=== PATIENT | female | born 1955 | race Caucasian/White ===

== ENCOUNTER 2017-03-12 15:29 | Emergency (ER) | payer BC ==
[2017-03-12 15:53] VITALS: BP 134/95
[2017-03-12] MEDS ORDERED: cefTRIAXone 1 GM, Lidocaine 1% 2.1 ML IM ONE ×2 (16:06)
--- NOTE | 2017-03-12 16:12 | EDM.PDOC ---
ED HPI GENERAL MEDICAL PROBLEM - General Chief Complaint: ENT Problem Stated Complaint: SORE THROAT, NOT FEELING WELL Time Seen by Provider: 03/12/17 16:07 Source of Information: Reports: Patient, Family History Limitations: Reports: No Limitations - History of Present Illness INITIAL COMMENTS - FREE TEXT/NARRATIVE: pt developed pain in her throat today and realized that this felt like when she had strept. She does not have a fever. Onset: Sudden Duration: Hour(s): Location: Reports: Other ( sore throat. ) Associated Symptoms: Reports: Fever/Chills, Other (pt has had chills) - Related Data Allergies Allergy/AdvReac Type Severity Reaction Status Date / Time Sulfa (Sulfonamide Allergy Rash Verified 10/06/16 21:52 Antibiotics) Home Meds: Home Meds Gabapentin [Neurontin] 600 mg PO TID 10/09/14 [History] Hydrocodone/Acetaminophen [Hydrocodon-Acetaminophn 10-325] 10 - 325 mg PO ASDIRECTED PRN 10/09/14 [History] Nortriptyline 10 mg PO BEDTIME 10/09/14 [History] Alendronate [Fosamax] 70 mg PO Q7D@0600 10/06/16 [History] Past Medical History HEENT History: Reports: Impaired Vision Cardiovascular History: Reports: Hypertension Gastrointestinal History: Reports: Bowel Obstruction, Cholelithiasis, Pancreatitis 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: Musculoskeletal History: Reports: Back Pain, Chronic, Fracture, Osteoarthritis Endocrine/Metabolic History: Reports: Osteopenia - Past Surgical History GI Surgical History: Reports: Bariatric Procedure, Cholecystectomy, Hernia Repair/Other, Other (See Below) Social & Family History - Tobacco Use Smoking Status *Q: Never Smoker Second Hand Smoke Exposure: No - Caffeine Use Caffeine Use: Reports: Coffee - Alcohol Use Days Per Week of Alcohol Use: 7 Number of Drinks Per Day: 6 Total Drinks Per Week: 42 - Recreational Drug Use Recreational Drug Use: No - Living Situation & Occupation Living situation: Reports: Occupation: Employed ED ROS ENT - Review of Systems Review Of Systems: See Below Constitutional: Reports: Chills, Fatigue HEENT: Reports: Throat Pain Respiratory: Reports: No Symptoms Cardiovascular: Reports: No Symptoms Endocrine: Reports: No Symptoms GI/Abdominal: Reports: No Symptoms : Reports: No Symptoms Musculoskeletal: Reports: No Symptoms Skin: Reports: No Symptoms ED EXAM, ENT - Physical Exam Exam: See Below Text/Narrative:: pt has a sore throat which started this am. Exam Limited By: No Limitations General Appearance: Alert, Mild Distress Ears: Normal TMs Nose: Normal Inspection Mouth/Throat: Throat Pain, Throat Swelling Head: Atraumatic Neck: Lymphadenopathy (R), Lymphadenopathy (L) Respiratory/Chest: No Respiratory Distress Course - Vital Signs Last Recorded V/S: Last Vital Signs Temp 35.9 C 03/12/17 15:53 Pulse 98 03/12/17 15:53 Resp 16 03/12/17 15:53 BP 134/95 H 03/12/17 15:53 Pulse Ox 99 03/12/17 15:53 - Orders/Labs/Meds Meds: Medications Discontinued Medications Generic Name Dose Route Start Last Admin Trade Name Rockyq PRN Reason Stop Dose Admin Ceftriaxone Sodium 1 gm/ 0 gm 03/12/17 16:06 Lidocaine HCl 2.1 ml IM 03/12/17 16:07 ONETIME ONE - Re-Assessments/Exams Free Text/Narrative Re-Assessment/Exam: 03/12/17 16:12 pt was given rocephen 1 gm im. Departure - Departure Time of Disposition: 16:13 Disposition: Home, Self-Care 01 Condition: fair Clinical Impression: Streptococcal pharyngitis - Discharge Information Forms: ED Department Discharge Care Plan Goals: push fluids, tyenol for fever and discomfort. amoxicillin 500mg tid.
== END 2017-03-12 16:41 | disposition home or self-care (01) ==
LOC: JP.ED 15:29
DX: J02.0 Streptococcal pharyngitis (principal); I10 Essential (primary) hypertension; M19.90 Unspecified osteoarthritis, unspecified site; Z98.84 Bariatric surgery status; Z90.49 Acquired absence of other specified parts of digestive tract; Z98.890 Other specified postprocedural states; Z88.2 Allergy status to sulfonamides
CPT/HCPCS: 87430; 96372; 99284; J0696

== ENCOUNTER 2020-09-09 15:24 | Inpatient (IN) | payer OTHER, MEDICARE ==
[2020-09-09] MEDS ORDERED: Acetaminophen 500 MG Tab PO ONE (16:06)
[2020-09-09] MEDS ORDERED: Sodium Chloride 0.9% 10 ML Syringe FLUSH PRN (16:37)
--- NOTE | 2020-09-09 16:50 | EDM.PDOC ---
ED HPI GENERAL MEDICAL PROBLEM - General Chief Complaint: General Stated Complaint: LETHARGIC,ACHES Time Seen by Provider: 09/09/20 16:35 Source of Information: Reports: Patient, Old Records, RN History Limitations: Reports: No Limitations - History of Present Illness INITIAL COMMENTS - FREE TEXT/NARRATIVE: 64 yo female here with fever, dizziness with standing, mild dysuria, and a MCPHERSON. Sx's began yesterday. Has body aches. No known exposures. Called the clinic and was directed to the ER. No fever treatment as she was not aware of a fever. No stiff neck or photophobia. Onset: Gradual Onset Date: 09/08/20 Duration: Day(s): (1+), Getting Worse Location: Reports: Generalized Quality: Reports: Ache (diffuse) Severity: Mild Improves with: Reports: None Worsens with: Reports: Other (? time) Context: Reports: Other (See HPI) Associated Symptoms: Reports: Fever/Chills (was not fully aware of fever), Headaches. 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: Other (see below) (none) bodyaches and headache Pain Score (Numeric/FACES): 7 - Related Data Allergies Allergy/AdvReac Type Severity Reaction Status Date / Time Sulfa (Sulfonamide Allergy Rash Verified 09/09/20 15:54 Antibiotics) Home Meds: Home Meds Gabapentin [Neurontin] 600 mg PO TID 10/09/14 [History] Nortriptyline 10 mg PO BEDTIME 10/09/14 [History] Alendronate [Fosamax] 70 mg PO Q7D@0600 10/06/16 [History] Buprenorphine/Naloxone [Buprenorphine-Naloxone 8 MG-2 MG] 1 tab SL BID 09/09/20 [History] DULoxetine HCl [Duloxetine HCl] 60 mg PO BID 09/09/20 [History] busPIRone [Buspar] 10 mg PO BID 09/09/20 [History] Past Medical History HEENT History: Reports: Impaired Vision Cardiovascular History: Reports: Hypertension Respiratory History: Reports: None Gastrointestinal History: Reports: Bowel Obstruction, Cholelithiasis, Pancreatitis Genitourinary History: Reports: None 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: Musculoskeletal History: Reports: Back Pain, Chronic, Fracture, Osteoarthritis Neurological History: Reports: None Psychiatric History: Reports: Addiction Endocrine/Metabolic History: Reports: Osteopenia Hematologic History: Reports: None Immunologic History: Reports: None Oncologic (Cancer) History: Reports: None Dermatologic History: Reports: None - Infectious Disease History Infectious Disease History: Reports: Chicken Pox - Past Surgical History GI Surgical History: Reports: Bariatric Procedure, Cholecystectomy, Hernia Repair/Other, Other (See Below) Other GI Surgeries/Procedures: Bariatric procedure in 2001. Social & Family History - Tobacco Use Tobacco Use Status *Q: Never Tobacco User - Caffeine Use Caffeine Use: Reports: Coffee - Recreational Drug Use Other Recreational Drug Type: hydrocodone Recreational Drug Use Frequency: Not Used In Over 6 Months - Living Situation & Occupation Living situation: Reports: Occupation: Employed ED ROS GENERAL - Review of Systems Review Of Systems: See Below Constitutional: Reports: Fever, Malaise HEENT: Reports: No Symptoms Respiratory: Reports: No Symptoms Cardiovascular: Reports: Lightheadedness Endocrine: Reports: No Symptoms GI/Abdominal: Reports: No Symptoms : Reports: Dysuria (mild) Musculoskeletal: Reports: No Symptoms Skin: Reports: No Symptoms Neurological: Reports: No Symptoms ED EXAM, GENERAL - Physical Exam Exam: See Below Exam Limited By: No Limitations General Appearance: Alert, WD/WN, No Apparent Distress Eye Exam: Bilateral Eye: Normal Inspection Ears: Normal External Exam, Hearing Grossly Normal, Normal TMs Ear Exam: Bilateral Ear: Auricle Normal, Canal Normal, TM normal Nose: Normal Inspection, No Blood Throat/Mouth: Normal Inspection, Normal Lips, Normal Oropharynx, Normal Voice, No Airway Compromise Head: Atraumatic, Normocephalic Neck: Normal Inspection Respiratory/Chest: No Respiratory Distress, Lungs Clear, Normal Breath Sounds, No Accessory Muscle Use Cardiovascular: Regular Rate, Rhythm, Tachycardia, Other (Trace RLE edema below the knees). No: No Edema GI/Abdominal: Normal Bowel Sounds, Soft, Non-Tender, No Distention Back Exam: Normal Inspection, CVA Tenderness (R). No: CVA Tenderness (L) Extremities: Normal Inspection, Normal Range of Motion, Non-Tender, No Pedal Edema Neurological: Alert, Oriented, CN II-XII Intact, Normal Cognition, No Motor/Sensory Deficits Psychiatric: Normal Affect, Normal Mood Skin Exam: Warm, Dry, Intact, Normal Color, No Rash Course - Vital Signs Last Recorded V/S: Last Vital Signs Temp 37.6 C 12/02/20 17:29 Pulse 102 H 09/09/20 17:29 Resp 16 09/09/20 17:29 BP 111/69 09/09/20 17:29 Pulse Ox 99 09/09/20 17:29 - Orders/Labs/Meds Orders: Active Orders 24 hr Category Date Time Status CULTURE BLOOD [BC] Stat Lab 09/09/20 16:47 Received CULTURE BLOOD [BC] Stat Lab 09/09/20 16:51 Received CULTURE URINE [RM] Stat Lab 09/09/20 16:59 Received NS + KCl 20mEq/L [Normal Saline with 20 mEq KCl] 1,000 Med 09/09/20 17:00 Active ml IV ASDIRECTED Sodium Chloride 0.9% [Saline Flush] Med 09/09/20 16:37 Active 10 ml FLUSH ASDIRECTED PRN Saline Lock Insert [OM.PC] Routine Oth 09/09/20 16:37 Ordered Medication Orders Potassium Chloride/Sodium Chloride (Normal Saline With 20 Meq Kcl) 1,000 mls @ 1,000 mls/hr IV ASDIRECTED PALOMO Last Admin: 09/09/20 16:58 Dose: 1,000 mls/hr Documented by: PREILOR Sodium Chloride (Saline Flush) 10 ml FLUSH ASDIRECTED PRN PRN Reason: Keep Vein Open Last Admin: 09/09/20 16:51 Dose: 10 ml Documented by: PURNIMA Labs: Laboratory Tests 09/09/20 09/09/20 09/09/20 Range/Units 16:15 16:15 16:15 WBC 28.9 H (4.5-11.0) K/uL RBC 3.82 (3.30-5.50) M/uL Hgb 11.8 L D (12.0-15.0) g/dL Hct 37.6 (36.0-48.0) % MCV 98 (80-98) fL MCH 31 (27-31) pg MCHC 31 L (32-36) % Plt Count 285 (150-400) K/uL Sodium 132 L (140-148) mmol/L Potassium 3.9 (3.6-5.2) mmol/L Chloride 94 L (100-108) mmol/L Carbon Dioxide 27 (21-32) mmol/L Anion Gap 14.9 H (5.0-14.0) mmol/L BUN 17 D (7-18) mg/dL Creatinine 1.4 H D (0.6-1.0) mg/dL Est Cr Clr Drug Dosing 31.68 mL/min Estimated GFR (MDRD) 38 L (>60) Glucose 192 H (74-106) mg/dL Lactic Acid 2.2 H (0.4-2.0) mmol/L Calcium 9.0 (8.5-10.1) mg/dL Urine Color (YELLOW) Urine Appearance (CLEAR) Urine pH (5.0-8.0) Ur Specific [place] (1.008-1.030) Urine Protein (NEGATIVE) mg/dL Urine Glucose (UA) (NEGATIVE) mg/dL Urine Ketones (NEGATIVE) mg/dL Urine Occult Blood (NEGATIVE) Urine Nitrite (NEGATIVE) Urine Bilirubin (NEGATIVE) Urine Urobilinogen (0.2-1.0) EU/dL Ur Leukocyte Esterase (NEGATIVE) Urine RBC (0-5) Urine WBC (0-5) Ur Epithelial Cells Amorphous Sediment Urine Bacteria Urine Mucus SARS CoV-2 RNA Rapid NICKY 09/09/20 09/09/20 Range/Units 16:20 16:26 WBC (4.5-11.0) K/uL RBC (3.30-5.50) M/uL Hgb (12.0-15.0) g/dL Hct (36.0-48.0) % MCV (80-98) fL MCH (27-31) pg MCHC (32-36) % Plt Count (150-400) K/uL Sodium (140-148) mmol/L Potassium (3.6-5.2) mmol/L Chloride (100-108) mmol/L Carbon Dioxide (21-32) mmol/L Anion Gap (5.0-14.0) mmol/L BUN (7-18) mg/dL Creatinine (0.6-1.0) mg/dL Est Cr Clr Drug Dosing mL/min Estimated GFR (MDRD) (>60) Glucose (74-106) mg/dL Lactic Acid (0.4-2.0) mmol/L Calcium (8.5-10.1) mg/dL Urine Color Yellow (YELLOW) Urine Appearance Slightly cloudy A (CLEAR) Urine pH 5.5 (5.0-8.0) Ur Specific [place] 1.020 (1.008-1.030) Urine Protein 100 H (NEGATIVE) mg/dL Urine Glucose (UA) Negative (NEGATIVE) mg/dL Urine Ketones Negative (NEGATIVE) mg/dL Urine Occult Blood Small H (NEGATIVE) Urine Nitrite Positive H (NEGATIVE) Urine Bilirubin Small H (NEGATIVE) Urine Urobilinogen 0.2 (0.2-1.0) EU/dL Ur Leukocyte Esterase Small H (NEGATIVE) Urine RBC 0-5 (0-5) Urine WBC Packed H (0-5) Ur Epithelial Cells Rare Amorphous Sediment Not seen Urine Bacteria Many Urine Mucus Not seen SARS CoV-2 RNA Rapid NICKY Negative Meds: Medications Generic Name Dose Route Start Last Admin Trade Name Freq PRN Reason Stop Dose Admin Potassium Chloride/Sodium Chloride 1,000 mls @ 1,000 mls/hr 09/09/20 17:00 09/09/20 16:58 Normal Saline With 20 Meq Kcl IV 1,000 mls/hr ASDIRECTED PALOMO Administration Sodium Chloride 10 ml 09/09/20 16:37 09/09/20 16:51 Saline Flush FLUSH 10 ml ASDIRECTED PRN Administration Keep Vein Open Discontinued Medications Generic Name Dose Route Start Last Admin Trade Name Freq PRN Reason Stop Dose Admin Acetaminophen 1,000 mg 09/09/20 16:06 09/09/20 16:14 Tylenol Extra Strength PO 09/09/20 16:07 1,000 mg ONETIME ONE Administration Ceftriaxone Sodium 1 gm/ 50 mls @ 100 mls/hr 09/09/20 16:51 09/09/20 16:58 Sodium Chloride IV 09/09/20 17:20 100 mls/hr ONETIME ONE Administration Departure - Departure Time of Disposition: 18:05 Disposition: Admitted As Inpatient 65 Condition: Fair Clinical Impression: Pyelonephritis - Discharge Information *PRESCRIPTION DRUG MONITORING PROGRAM REVIEWED*: Not Applicable *COPY OF PRESCRIPTION DRUG MONITORING REPORT IN PATIENT MARIO: Not Applicable Referrals: Chante Michael DO [Primary Care Provider] - Forms: ED Department Discharge Sepsis Event Note (ED) - Evaluation Sepsis Screening Result: Possible Sepsis Risk - Focused Exam Vital Signs: Vital Signs Temp Pulse Resp BP Pulse Ox 09/09/20 17:29 37.6 C 102 H 16 111/69 99 09/09/20 16:24 113 H 111/69 94 L 09/09/20 15:53 40.1 C H 116 H 16 119/79 98 09/09/20 15:50 40.1 C H 116 H 16 119/79 98 - My Orders Last 24 Hours: My Active Orders 09/09/20 16:37 Sodium Chloride 0.9% [Saline Flush] 10 ml FLUSH ASDIRECTED PRN Saline Lock Insert [OM.PC] Routine 09/09/20 16:47 CULTURE BLOOD [BC] Stat 09/09/20 16:51 CULTURE BLOOD [BC] Stat 09/09/20 16:59 CULTURE URINE [RM] Stat 09/09/20 17:00 NS + KCl 20mEq/L [Normal Saline with 20 mEq KCl] 1,000 ml IV ASDIRECTED - Assessment/Plan Last 24 Hours: My Active Orders 09/09/20 16:37 Sodium Chloride 0.9% [Saline Flush] 10 ml FLUSH ASDIRECTED PRN Saline Lock Insert [OM.PC] Routine 09/09/20 16:47 CULTURE BLOOD [BC] Stat 09/09/20 16:51 CULTURE BLOOD [BC] Stat 09/09/20 16:59 CULTURE URINE [RM] Stat 09/09/20 17:00 NS + KCl 20mEq/L [Normal Saline with 20 mEq KCl] 1,000 ml IV ASDIRECTED
[2020-09-09] MEDS ORDERED: cefTRIAXone 1 GM in Sodium Chloride 0.9% 50 ML IV ONE (16:51)
[2020-09-09] MEDS ORDERED: NS + KCl 20mEq/L 1,000 ML IV SCH (17:00)
[2020-09-09] MEDS ORDERED: Sodium Chloride 0.9% 1,000 ML IV SCH (18:45)
--- NOTE | 2020-09-09 19:33 | PCM.HP.2 ---
H&P History of Present Illness - General Date of Service: 09/09/20 Admit Problem/Dx: Admission Diagnosis/Problem Admission Diagnosis/Problem Pyelonephritis Source of Information: Patient History Limitations: Reports: No Limitations - History of Present Illness Initial Comments - Free Text/Narative: chief complaint: kidney infection This is a 64 year old female brought to the ER by for evaluation of symptoms. She reports has been sick for two days with weakness, headache, bodyaches, decreased appetite, thirsty, and dry mouth. She reports a history of frequent UTI Onset of Symptoms: Reports: Gradual Symptom Onset Date: 09/08/20 Duration of Symptoms: Reports: Day(s): Location: Reports: Generalized Quality: Reports: Same as Previous Episode Severity: Severe Improves with: Reports: None Worsens with: Reports: None Associated Symptoms: Reports: Fever/Chills, Loss of Appetite, Weakness bodyaches and headache Pain Score (Numeric/FACES): 3 - Related Data Allergies/Adverse Reactions: Allergies Allergy/AdvReac Type Severity Reaction Status Date / Time Sulfa (Sulfonamide Allergy Rash Verified 09/09/20 15:54 Antibiotics) Home Medications: Home Meds Gabapentin [Neurontin] 600 mg PO TID 10/09/14 [History] Nortriptyline 10 mg PO BEDTIME 10/09/14 [History] Alendronate [Fosamax] 70 mg PO Q7D@0600 10/06/16 [History] Buprenorphine/Naloxone [Buprenorphine-Naloxone 8 MG-2 MG] 1 tab SL BID 09/09/20 [History] DULoxetine HCl [Duloxetine HCl] 60 mg PO BID 09/09/20 [History] busPIRone [Buspar] 10 mg PO BID 09/09/20 [History] Past Medical History HEENT History: Reports: Impaired Vision Cardiovascular History: Reports: Hypertension Respiratory History: Reports: None Gastrointestinal History: Reports: Bowel Obstruction, Cholelithiasis, Pancreatitis Genitourinary History: Reports: None BOX ORDER PERSON History: Reports: Musculoskeletal History: Reports: Back Pain, Chronic, Fracture, Osteoarthritis Neurological History: Reports: None Psychiatric History: Reports: Addiction Endocrine/Metabolic History: Reports: Osteopenia Hematologic History: Reports: None Immunologic History: Reports: None Oncologic (Cancer) History: Reports: None Dermatologic History: Reports: None - Infectious Disease History Infectious Disease History: Reports: Chicken Pox - Past Surgical History GI Surgical History: Reports: Bariatric Procedure, Cholecystectomy, Hernia Repair/Other, Other (See Below) Other GI Surgeries/Procedures: Bariatric procedure in 2001. Social & Family History - Tobacco Use Tobacco Use Status *Q: Never Tobacco User - Caffeine Use Caffeine Use: Reports: Coffee - Recreational Drug Use Other Recreational Drug Type: hydrocodone Recreational Drug Use Frequency: Not Used In Over 6 Months - Living Situation & Occupation Living situation: Reports: Occupation: Employed H&P Review of Systems - Review of Systems: Review Of Systems: See Below General: Reports: Fever, Chills, Malaise, Weakness, Decreased Appetite HEENT: Reports: Glasses Pulmonary: Reports: No Symptoms Cardiovascular: Reports: No Symptoms Gastrointestinal: Reports: No Symptoms Genitourinary: Reports: Frequency, Flank Pain (right ) Musculoskeletal: Reports: Back Pain Skin: Reports: No Symptoms Psychiatric: Reports: No Symptoms Neurological: Reports: Headache Hematologic/Lymphatic: Reports: No Symptoms Immunologic: Reports: No Symptoms Exam - Exam Exam: See Below - Vital Signs Vital Signs: Last Vital Signs Temp 37.6 C 09/09/20 17:29 Pulse 94 09/09/20 18:38 Resp 16 09/09/20 17:29 BP 90/59 L 09/09/20 18:38 Pulse Ox 92 L 09/09/20 18:38 Weight: 84.822 kg - Exam Quality Assessment: DVT Prophylaxis General: Alert, Oriented, Cooperative HEENT: PERRLA, Hearing Intact, Mucosa Moist & [place], Nares Patent, Normal Nasal Septum, Posterior Pharynx Clear, Conjunctiva Clear, EOMI, EACs Clear, TMs Clear Neck: Supple, Trachea Midline, 2 Lungs: Clear to Auscultation, Normal Respiratory Effort Cardiovascular: Regular Rate, Regular Rhythm GI/Abdominal Exam: Normal Bowel Sounds, Soft, Non-Tender, No Organomegaly, No Distention, No Abnormal Bruit, No Mass, Pelvis Stable (Female) Exam: Deferred Rectal (Female) Exam: Deferred Back Exam: Full Range of Motion, CVA Tenderness (R) Extremities: Normal Inspection, Normal Range of Motion, Non-Tender, No Pedal Edema, Normal Capillary Refill Peripheral Pulses: 2+: Radial (L), Radial (R) Skin: Warm, Dry, Intact Neurological: Strength Equal Bilateral, Normal Speech, Normal Tone Neuro Extensive - Mental Status: Alert, Oriented x3, Normal Mood/Affect, Normal Cognition Neuro Extensive - Motor, Sensory, Reflexes: CN II-XII Intact, Normal Gait, Normal Reflexes Psychiatric: Alert, Normal Affect, Normal Mood - Patient Data Lab Results Last 24 hrs: Laboratory Results - last 24 hr 09/09/20 09/09/20 09/09/20 Range/Units 16:15 16:15 16:15 WBC 28.9 H (4.5-11.0) K/uL RBC 3.82 (3.30-5.50) M/uL Hgb 11.8 L D (12.0-15.0) g/dL Hct 37.6 (36.0-48.0) % MCV 98 (80-98) fL MCH 31 (27-31) pg MCHC 31 L (32-36) % Plt Count 285 (150-400) K/uL Sodium 132 L (140-148) mmol/L Potassium 3.9 (3.6-5.2) mmol/L Chloride 94 L (100-108) mmol/L Carbon Dioxide 27 (21-32) mmol/L Anion Gap 14.9 H (5.0-14.0) mmol/L BUN 17 D (7-18) mg/dL Creatinine 1.4 H D (0.6-1.0) mg/dL Est Cr Clr Drug Dosing 31.68 mL/min Estimated GFR (MDRD) 38 L (>60) Glucose 192 H (74-106) mg/dL Lactic Acid 2.2 H (0.4-2.0) mmol/L Calcium 9.0 (8.5-10.1) mg/dL Urine Color (YELLOW) Urine Appearance (CLEAR) Urine pH (5.0-8.0) Ur Specific [place] (1.008-1.030) Urine Protein (NEGATIVE) mg/dL Urine Glucose (UA) (NEGATIVE) mg/dL Urine Ketones (NEGATIVE) mg/dL Urine Occult Blood (NEGATIVE) Urine Nitrite (NEGATIVE) Urine Bilirubin (NEGATIVE) Urine Urobilinogen (0.2-1.0) EU/dL Ur Leukocyte Esterase (NEGATIVE) Urine RBC (0-5) Urine WBC (0-5) Ur Epithelial Cells Amorphous Sediment Urine Bacteria Urine Mucus SARS CoV-2 RNA Rapid NICKY 09/09/20 09/09/20 Range/Units 16:20 16:26 WBC (4.5-11.0) K/uL RBC (3.30-5.50) M/uL Hgb (12.0-15.0) g/dL Hct (36.0-48.0) % MCV (80-98) fL MCH (27-31) pg MCHC (32-36) % Plt Count (150-400) K/uL Sodium (140-148) mmol/L Potassium (3.6-5.2) mmol/L Chloride (100-108) mmol/L Carbon Dioxide (21-32) mmol/L Anion Gap (5.0-14.0) mmol/L BUN (7-18) mg/dL Creatinine (0.6-1.0) mg/dL Est Cr Clr Drug Dosing mL/min Estimated GFR (MDRD) (>60) Glucose (74-106) mg/dL Lactic Acid (0.4-2.0) mmol/L Calcium (8.5-10.1) mg/dL Urine Color Yellow (YELLOW) Urine Appearance Slightly cloudy A (CLEAR) Urine pH 5.5 (5.0-8.0) Ur Specific [place] 1.020 (1.008-1.030) Urine Protein 100 H (NEGATIVE) mg/dL Urine Glucose (UA) Negative (NEGATIVE) mg/dL Urine Ketones Negative (NEGATIVE) mg/dL Urine Occult Blood Small H (NEGATIVE) Urine Nitrite Positive H (NEGATIVE) Urine Bilirubin Small H (NEGATIVE) Urine Urobilinogen 0.2 (0.2-1.0) EU/dL Ur Leukocyte Esterase Small H (NEGATIVE) Urine RBC 0-5 (0-5) Urine WBC Packed H (0-5) Ur Epithelial Cells Rare Amorphous Sediment Not seen Urine Bacteria Many Urine Mucus Not seen SARS CoV-2 RNA Rapid NICKY Negative Result Diagrams: 09/09/20 16:15 09/09/20 16:15 Sepsis Event Note - Evaluation Sepsis Screening Result: Possible Sepsis Risk - Focused Exam Vital Signs: Vital Signs Temp Pulse Resp BP Pulse Ox 09/09/20 18:38 94 90/59 L 92 L 09/09/20 18:11 96 102/65 92 L 09/09/20 17:29 37.6 C 102 H 16 111/69 99 09/09/20 16:24 113 H 111/69 94 L 09/09/20 15:53 40.1 C H 116 H 16 119/79 98 09/09/20 15:50 40.1 C H 116 H 16 119/79 98 - Problem List (1) Pyelonephritis SNOMED Code(s): 99511335 ICD Code: N12 - TUBULO-INTERSTITIAL NEPHRITIS, NOT SPCF ACUTE OR CHRONIC Status: Acute Priority: High Current Visit: Yes (2) Opiate addiction SNOMED Code(s): 36909887 ICD Code: F11.20 - OPIOID DEPENDENCE, UNCOMPLICATED Status: Acute Priority: Low Current Visit: Yes Qualifiers: Substance use status: in remission Qualified Code(s): F11.21 - Opioid dependence, in remission Problem List Initiated/Reviewed/Updated: Yes Orders Last 24hrs: Active Orders 24 hr Category Date Time Status Patient Status Manage Transfer [TRANSFER] Routine ADT 09/09/20 18:43 Active CULTURE BLOOD [BC] Stat Lab 09/09/20 16:47 Received CULTURE BLOOD [BC] Stat Lab 09/09/20 16:51 Received CULTURE URINE [RM] Stat Lab 09/09/20 16:59 Received NS + KCl 20mEq/L [Normal Saline with 20 mEq KCl] 1,000 Med 09/09/20 17:00 Active ml IV ASDIRECTED Sodium Chloride 0.9% [Normal Saline] 1,000 ml Med 09/09/20 18:45 Active IV ASDIRECTED Sodium Chloride 0.9% [Saline Flush] Med 09/09/20 16:37 Active 10 ml FLUSH ASDIRECTED PRN Saline Lock Insert [OM.PC] Routine Oth 09/09/20 16:37 Ordered Resuscitation Status Routine Resus Stat 09/09/20 18:47 Ordered Medication Orders Potassium Chloride/Sodium Chloride (Normal Saline With 20 Meq Kcl) 1,000 mls @ 1,000 mls/hr IV ASDIRECTED [facility]OMO Last Admin: 09/09/20 16:58 Dose: 1,000 mls/hr Documented by: PREILOR Sodium Chloride (Normal Saline) 1,000 mls @ 999 mls/hr IV ASDIRECTED [place] Last Admin: 09/09/20 18:46 Dose: 999 mls/hr Documented by: PREILOR Sodium Chloride (Saline Flush) 10 ml FLUSH ASDIRECTED PRN PRN Reason: Keep Vein Open Last Admin: 09/09/20 16:51 Dose: 10 ml Documented by: PURNIMA Assessment/Plan Comment:: ASSESSMENT / PLAN: PYELONEPHRITIS This is a 64 year old female reports two day history of not feeling well.She has had weakness, headaches, body aches, decreased appetite, thirsty and dry mouth. She has history of frequent urinary tract infections "over the years", pain more intense on the right side. Vital signs on arrival TPR 104-116-16 B/P 119/79, given Tylenol for fever. Lab values = CBC remarkable WBC 28.9, lactic acid 2.2, urinalysis positive for nitrates and packed WBCs cultures pending, blood cultures also pending. Plan Called discussed case with hospitalist it application development manager agreed to come and evaluate the patient in the emergency department for admission Pyelonephritis -Admit to [facility] Med-Surg overflow for further monitoring -IV Fluids for rehydration LR #2 bag at 999ml/hr then at 125 mL per hour -IV Antibiotic; Rocephin 1000mg IV every 24 hours -Tylenol for pain control -Advise to notify nurses of any fever or worsen pain -blood cultures x2 pending -urine culture pending -Lactic acid at 2100 -And a.m. labs: CBC, BMP Opiates Addiction history of, patient has her medications Suboxone with her and this will be stored at the Nursing Station. -Suboxone 10 mg sublingual bid Maintenance issues -Orders home meds: ordered -Nutrition: Regular Diet -Vasquez catheter not indicated at this time -DVT: Lovenox 40 mg subcut daily -PPI; IV Protonix 40mg daily CODE STATUS: FULL Admission status: Admit to ICU Med Surg overflow Admission justification. This patient will be admitted for inpatient services and is medically appropriate meeting medical necessity for inpatient admission as outlined in my documentation. I reasonably expect the patient will require inpatient services that span. Time over 2 midnights. I reasonably expect this patient to be discharged or transf erred within 96 hours after admission to the critical access hospital. Disposition: home with Primary care provider: Dr. Michael, [place], [place]. Hospitalist: Dr. Grubbs
[2020-09-09] MEDS ORDERED: Albuterol/Ipratropium 3.0-0.5 MG/3 ML Neb Soln NEB PRN (20:01)
[2020-09-09] MEDS ORDERED: Docusate Sodium 100 MG Cap PO PRN (20:01)
[2020-09-09] MEDS ORDERED: Albuterol 0.083% 2.5 MG/3 ML Neb Soln NEB PRN (20:01)
[2020-09-09] MEDS ORDERED: Ondansetron 4 MG Tab.DIS PO PRN (20:01)
[2020-09-09] MEDS ORDERED: Bisacodyl 5 MG Tab PO PRN (20:01)
[2020-09-09] MEDS: Sodium Chloride 0.9% 1,000 ML IV SCH (20:30)
[2020-09-09] MEDS: Nortriptyline 10 MG Cap PO SCH (21:58)
[2020-09-09] MEDS: Gabapentin 300 MG Cap PO SCH (21:58)
[2020-09-09] MEDS: DULoxetine 30 MG Cap PO SCH (21:59)
[2020-09-09] MEDS: Buprenorphine/Naloxone 8-2 MG Tab.SL SL SCH (22:00)
[2020-09-09] MEDS: busPIRone 10 MG Tab PO SCH (22:00)
[2020-09-09] MEDS: Acetaminophen 325 MG Tab PO PRN (23:31)
[2020-09-10] MEDS: Acetaminophen 325 MG Tab PO PRN ×2 (03:59→19:17)
[2020-09-10] MEDS: Sodium Chloride 0.9% 1,000 ML IV SCH (04:37)
[2020-09-10] MEDS ORDERED: Pantoprazole 40 MG Vial IV SCH (09:00)
--- NOTE | 2020-09-10 09:40 | PCM.PN ---
- General Info Date of Service: 09/10/20 Subjective Update: Patient did have a fever overnight following admission but there were no acute issues. Blood pressure has stabilized. Lactic acid level has normalized. She still has a mild headache and feels weak and tired but otherwise feels better. Mild right flank pain. No dysuria today. Appetite is improving. Urine culture and one blood culture are both growing gram-negative rods. White count is improving. Functional Status: Reports: Pain Controlled, Tolerating Diet - Review of Systems General: Reports: Fever Genitourinary: Denies: Dysuria, Flank Pain - Patient Data Vitals - Most Recent: Last Vital Signs Temp 37.2 C 09/10/20 04:00 Pulse 104 H 09/10/20 04:00 Resp 18 09/10/20 04:00 BP 132/71 09/10/20 04:00 Pulse Ox 95 09/10/20 04:00 Weight - Most Recent: 88.904 kg I&O - Last 24 Hours: Intake & Output 09/09/20 09/10/20 09/10/20 22:59 06:59 14:59 Intake Total 1706 Output Total 300 300 Balance -300 1406 Lab Results Last 24 Hours: Laboratory Results - last 24 hr 09/09/20 09/09/20 09/09/20 Range/Units 16:15 16:15 16:15 WBC 28.9 H (4.5-11.0) K/uL RBC 3.82 (3.30-5.50) M/uL Hgb 11.8 L D (12.0-15.0) g/dL Hct 37.6 (36.0-48.0) % MCV 98 (80-98) fL MCH 31 (27-31) pg MCHC 31 L (32-36) % Plt Count 285 (150-400) K/uL Neut % (Auto) (36-66) % Lymph % (Auto) (24-44) % [place] % (Auto) (2-6) % Eos % (Auto) (2-4) % Baso % (Auto) (0-1) % Sodium 132 L (140-148) mmol/L Potassium 3.9 (3.6-5.2) mmol/L Chloride 94 L (100-108) mmol/L Carbon Dioxide 27 (21-32) mmol/L Anion Gap 14.9 H (5.0-14.0) mmol/L BUN 17 D (7-18) mg/dL Creatinine 1.4 H D (0.6-1.0) mg/dL Est Cr Clr Drug Dosing 31.68 mL/min Estimated GFR (MDRD) 38 L (>60) Glucose 192 H (74-106) mg/dL Lactic Acid 2.2 H (0.4-2.0) mmol/L Calcium 9.0 (8.5-10.1) mg/dL C-Reactive Protein (0.0-0.3) mg/dL Amylase (25-115) U/L Lipase (73-393) U/L Urine Color (YELLOW) Urine Appearance (CLEAR) Urine pH (5.0-8.0) Ur Specific [place] (1.008-1.030) Urine Protein (NEGATIVE) mg/dL Urine Glucose (UA) (NEGATIVE) mg/dL Urine Ketones (NEGATIVE) mg/dL Urine Occult Blood (NEGATIVE) Urine Nitrite (NEGATIVE) Urine Bilirubin (NEGATIVE) Urine Urobilinogen (0.2-1.0) EU/dL Ur Leukocyte Esterase (NEGATIVE) Urine RBC (0-5) Urine WBC (0-5) Ur Epithelial Cells Amorphous Sediment Urine Bacteria Urine Mucus SARS CoV-2 RNA Rapid NICKY 09/09/20 09/09/20 09/09/20 Range/Units 16:15 16:20 16:26 WBC (4.5-11.0) K/uL RBC (3.30-5.50) M/uL Hgb (12.0-15.0) g/dL Hct (36.0-48.0) % MCV (80-98) fL MCH (27-31) pg MCHC (32-36) % Plt Count (150-400) K/uL Neut % (Auto) (36-66) % Lymph % (Auto) (24-44) % [place] % (Auto) (2-6) % Eos % (Auto) (2-4) % Baso % (Auto) (0-1) % Sodium (140-148) mmol/L Potassium (3.6-5.2) mmol/L Chloride (100-108) mmol/L Carbon Dioxide (21-32) mmol/L Anion Gap (5.0-14.0) mmol/L BUN (7-18) mg/dL Creatinine (0.6-1.0) mg/dL Est Cr Clr Drug Dosing mL/min Estimated GFR (MDRD) (>60) Glucose (74-106) mg/dL Lactic Acid (0.4-2.0) mmol/L Calcium (8.5-10.1) mg/dL C-Reactive Protein > 25.00 H (0.0-0.3) mg/dL Amylase 35 (25-115) U/L Lipase 38 L (73-393) U/L Urine Color Yellow (YELLOW) Urine Appearance Slightly cloudy A (CLEAR) Urine pH 5.5 (5.0-8.0) Ur Specific [place] 1.020 (1.008-1.030) Urine Protein 100 H (NEGATIVE) mg/dL Urine Glucose (UA) Negative (NEGATIVE) mg/dL Urine Ketones Negative (NEGATIVE) mg/dL Urine Occult Blood Small H (NEGATIVE) Urine Nitrite Positive H (NEGATIVE) Urine Bilirubin Small H (NEGATIVE) Urine Urobilinogen 0.2 (0.2-1.0) EU/dL Ur Leukocyte Esterase Small H (NEGATIVE) Urine RBC 0-5 (0-5) Urine WBC Packed H (0-5) Ur Epithelial Cells Rare Amorphous Sediment Not seen Urine Bacteria Many Urine Mucus Not seen SARS CoV-2 RNA Rapid NICKY Negative 09/09/20 09/10/20 09/10/20 Range/Units 21:13 04:11 05:11 WBC 21.2 H (4.5-11.0) K/uL RBC 3.16 L (3.30-5.50) M/uL Hgb 9.9 L (12.0-15.0) g/dL Hct 31.4 L (36.0-48.0) % MCV 99 H (80-98) fL MCH 31 (27-31) pg MCHC 32 (32-36) % Plt Count 204 (150-400) K/uL Neut % (Auto) 89 H (36-66) % Lymph % (Auto) 4 L (24-44) % [place] % (Auto) 6 (2-6) % Eos % (Auto) 0 L (2-4) % Baso % (Auto) 0 (0-1) % Sodium (140-148) mmol/L Potassium (3.6-5.2) mmol/L Chloride (100-108) mmol/L Carbon Dioxide (21-32) mmol/L Anion Gap (5.0-14.0) mmol/L BUN (7-18) mg/dL Creatinine (0.6-1.0) mg/dL Est Cr Clr Drug Dosing mL/min Estimated GFR (MDRD) (>60) Glucose (74-106) mg/dL Lactic Acid 1.7 (0.4-2.0) mmol/L Calcium (8.5-10.1) mg/dL C-Reactive Protein (0.0-0.3) mg/dL Amylase (25-115) U/L Lipase (73-393) U/L Urine Color Yellow (YELLOW) Urine Appearance Clear (CLEAR) Urine pH 6.0 (5.0-8.0) Ur Specific [place] 1.015 (1.008-1.030) Urine Protein 30 H (NEGATIVE) mg/dL Urine Glucose (UA) Negative (NEGATIVE) mg/dL Urine Ketones Negative (NEGATIVE) mg/dL Urine Occult Blood Trace-intact H (NEGATIVE) Urine Nitrite Negative (NEGATIVE) Urine Bilirubin Negative (NEGATIVE) Urine Urobilinogen 1.0 (0.2-1.0) EU/dL Ur Leukocyte Esterase Small H (NEGATIVE) Urine RBC 0-5 (0-5) Urine WBC 0-5 (0-5) Ur Epithelial Cells Few Amorphous Sediment Few Urine Bacteria Not seen Urine Mucus Not seen SARS CoV-2 RNA Rapid NICKY 09/10/20 Range/Units 05:11 WBC (4.5-11.0) K/uL RBC (3.30-5.50) M/uL Hgb (12.0-15.0) g/dL Hct (36.0-48.0) % MCV (80-98) fL MCH (27-31) pg MCHC (32-36) % Plt Count (150-400) K/uL Neut % (Auto) (36-66) % Lymph % (Auto) (24-44) % [place] % (Auto) (2-6) % Eos % (Auto) (2-4) % Baso % (Auto) (0-1) % Sodium 134 L (140-148) mmol/L Potassium 4.1 (3.6-5.2) mmol/L Chloride 101 (100-108) mmol/L Carbon Dioxide 25 (21-32) mmol/L Anion Gap 12.1 (5.0-14.0) mmol/L BUN 16 (7-18) mg/dL Creatinine 1.2 H (0.6-1.0) mg/dL Est Cr Clr Drug Dosing 36.97 mL/min Estimated GFR (MDRD) 45 L (>60) Glucose 139 H (74-106) mg/dL Lactic Acid (0.4-2.0) mmol/L Calcium 7.6 L D (8.5-10.1) mg/dL C-Reactive Protein (0.0-0.3) mg/dL Amylase (25-115) U/L Lipase (73-393) U/L Urine Color (YELLOW) Urine Appearance (CLEAR) Urine pH (5.0-8.0) Ur Specific [place] (1.008-1.030) Urine Protein (NEGATIVE) mg/dL Urine Glucose (UA) (NEGATIVE) mg/dL Urine Ketones (NEGATIVE) mg/dL Urine Occult Blood (NEGATIVE) Urine Nitrite (NEGATIVE) Urine Bilirubin (NEGATIVE) Urine Urobilinogen (0.2-1.0) EU/dL Ur Leukocyte Esterase (NEGATIVE) Urine RBC (0-5) Urine WBC (0-5) Ur Epithelial Cells Amorphous Sediment Urine Bacteria Urine Mucus SARS CoV-2 RNA Rapid NICKY Norm Results Last 24 Hours: Microbiology 09/09/20 16:59 Urine Culture - Preliminary Urine, Clean Catch Med Orders - Current: Current Medications Acetaminophen (Tylenol) 650 mg PO Q4H PRN PRN Reason: Fever Last Admin: 09/10/20 03:59 Dose: 650 mg Documented by: Albuterol (Proventil Neb Soln) 2.5 mg NEB Q4H PRN PRN Reason: Shortness Of Breath/wheezing Bisacodyl (Dulcolax) 5 mg PO DAILY PRN PRN Reason: Constipation Buprenorphine/Naloxone (Buprenorphine-Naloxone 8 Mg-2 Mg) 1 tab SL BIDAC [facility] Buspirone HCl (Buspar) 10 mg PO BID [facility] Last Admin: 09/09/20 22:00 Dose: 10 mg Documented by: Docusate Sodium (Colace) 100 mg PO BID PRN PRN Reason: Constipation Duloxetine HCl (Cymbalta) 60 mg PO BID [facility] Last Admin: 09/09/20 21:59 Dose: 60 mg Documented by: Enoxaparin Sodium (Lovenox) 40 mg SUBCUT DAILY [facility] Gabapentin (Neurontin) 600 mg PO TID [facility] Last Admin: 09/09/20 21:58 Dose: 600 mg Documented by: Nortriptyline HCl (Nortriptyline) 10 mg PO BEDTIME [facility] Last Admin: 09/09/20 21:58 Dose: 10 mg Documented by: Ondansetron HCl (Zofran Odt) 4 mg PO Q6H PRN PRN Reason: Nausea able to take PO Pantoprazole Sodium (Protonix) 40 mg PO ACBREAKFAST [facility] Paroxetine HCl (Paxil) 10 mg PO DAILY [facility] Discontinued Medications Acetaminophen (Tylenol Extra Strength) 1,000 mg PO ONETIME ONE Stop: 09/09/20 16:07 Last Admin: 09/09/20 16:14 Dose: 1,000 mg Documented by: Albuterol/Ipratropium (Duoneb 3.0-0.5 Mg/3 Ml) 3 ml NEB QID PRN PRN Reason: Shortness Of Breath/wheezing Buprenorphine/Naloxone (Buprenorphine-Naloxone 8 Mg-2 Mg) 1 tab SL BID [facility] Last Admin: 09/09/20 22:00 Dose: Not Given Documented by: Potassium Chloride/Sodium Chloride (Normal Saline With 20 Meq Kcl) 1,000 mls @ 1,000 mls/hr IV ASDIRECTED [facility] Last Admin: 09/09/20 16:58 Dose: 1,000 mls/hr Documented by: Ceftriaxone Sodium 1 gm/ (Sodium Chloride) 50 mls @ 100 mls/hr IV ONETIME ONE Stop: 09/09/20 17:20 Last Admin: 09/09/20 16:58 Dose: 100 mls/hr Documented by: Sodium Chloride (Normal Saline) 1,000 mls @ 999 mls/hr IV ASDIRECTED [facility] Last Admin: 09/09/20 18:46 Dose: 999 mls/hr Documented by: Sodium Chloride (Normal Saline) 1,000 mls @ 125 mls/hr IV ASDIRECTED [facility] Last Admin: 09/10/20 04:37 Dose: 125 mls/hr Documented by: Sodium Chloride (Saline Flush) 10 ml FLUSH ASDIRECTED PRN PRN Reason: Keep Vein Open Last Admin: 09/09/20 16:51 Dose: 10 ml Documented by: - Exam Quality Assessment: No: Supplemental Oxygen General: Alert, Oriented, Cooperative, No Acute Distress Lungs: Normal Respiratory Effort. No: Wheezing Cardiovascular: Regular Rate, Regular Rhythm GI/Abdominal Exam: Soft, No Distention Extremities: No Pedal Edema Psy/Mental Status: Alert, Normal Affect Sepsis Event Note - Evaluation Sepsis Screening Result: No Definite Risk - Focused Exam Vital Signs: Vital Signs Temp Temp Pulse Resp BP Pulse Ox 09/10/20 04:00 37.2 C 104 H 18 132/71 95 09/10/20 03:59 37.2 C 09/10/20 00:27 37.5 C 09/09/20 23:31 39.4 C H 09/09/20 23:30 39.4 C H 109 H 16 99/63 89 L - Problem List Review Problem List Initiated/Reviewed/Updated: Yes - My Orders Last 24 Hours: My Active Orders 09/10/20 09:38 Convert IV to Saline Lock [OM.PC] Routine 09/10/20 09:45 Buprenorphine/Naloxone [Buprenorphine-Naloxone 8 MG-2 MG] 1 tab SL BIDAC PARoxetine [Paxil] 10 mg PO DAILY 09/10/20 16:00 cefTRIAXone [Rocephin] 1 gm Sodium Chloride 0.9% [Normal Saline] 50 ml IV Q24H 09/11/20 05:00 BASIC METABOLIC PANEL,BMP [CHEM] Timed CBC W/O DIFF,HEMOGRAM [HEME] Timed (1) CRP [C-REACTIVE PROTEIN] [CHEM] Timed - Plan Plan:: ASSESSMENT / PLAN: Pyelonephritis with sepsis-fever, flank pain and urinary symptoms. High fever and high white count both of which are improving. Symptomatically better today. Sepsis has resolved. Urine culture and one blood culture are growing gram- negative rods. -Saline lock IV -Continue ceftriaxone -Symptomatic management of pain -Follow-up blood and urine cultures -Repeat labs in the morning Opiates Addiction, history of-chronic use of Suboxone, patient may use her own supply. -Suboxone 10 mg sublingual bid Maintenance issues -Nutrition: Regular Diet -DVT: Enoxaparin -GI: PPI Disposition: I anticipate discharge home after the hospital stay Homer Grubbs MD
[2020-09-10] MEDS: busPIRone 10 MG Tab PO SCH ×2 (10:03→20:27)
[2020-09-10] MEDS: Gabapentin 300 MG Cap PO SCH ×3 (10:03→20:27)
[2020-09-10] MEDS: DULoxetine 30 MG Cap PO SCH ×2 (10:03→20:27)
[2020-09-10] MEDS: Enoxaparin 40 MG/0.4 ML Syringe SUBCUT SCH (10:04)
[2020-09-10] MEDS: Pantoprazole 40 MG Tab.CR PO SCH (10:05)
[2020-09-10] MEDS: Buprenorphine/Naloxone 8-2 MG Tab.SL SL SCH ×3 (10:13→19:44)
[2020-09-10] MEDS: PARoxetine 20 MG Tab PO SCH (10:14)
[2020-09-10] MEDS ORDERED: cefTRIAXone 1 GM in Sodium Chloride 0.9% 50 ML IV SCH (16:00)
[2020-09-10] MEDS: Nortriptyline 10 MG Cap PO SCH (20:27)
[2020-09-11] MEDS: Acetaminophen 325 MG Tab PO PRN (05:41)
[2020-09-11] MEDS: Buprenorphine/Naloxone 8-2 MG Tab.SL SL SCH (08:05)
[2020-09-11] MEDS: busPIRone 10 MG Tab PO SCH (08:05)
[2020-09-11] MEDS: PARoxetine 20 MG Tab PO SCH (08:06)
[2020-09-11] MEDS: Pantoprazole 40 MG Tab.CR PO SCH (08:06)
[2020-09-11] MEDS: DULoxetine 30 MG Cap PO SCH (08:07)
[2020-09-11] MEDS: Gabapentin 300 MG Cap PO SCH (08:07)
[2020-09-11] MEDS: Enoxaparin 40 MG/0.4 ML Syringe SUBCUT SCH (08:08)
[2020-09-11 09:04] VITALS: BP 126/83; PULSE 91
--- NOTE | 2020-09-11 09:45 | PCM.DCSUM1 ---
Discharge Summary - Hospital Course Brief History: 64-year-old female with history of opiate dependence and previous gastric bypass who presented with confusion, weakness and dysuria. She was admitted for management of right-sided pyelonephritis with sepsis. Diagnosis: Stroke: No - Discharge Data Discharge Date: 09/11/20 Discharge Disposition: Home, Self-Care 01 Condition: Good - Referral to Home Health Primary Care Physician: Chante Michael, DO - Discharge Diagnosis/Problem(s) (1) Pyelonephritis SNOMED Code(s): 75430734 ICD Code: N12 - TUBULO-INTERSTITIAL NEPHRITIS, NOT SPCF ACUTE OR CHRONIC Status: Acute Priority: High (2) Sepsis due to Escherichia coli SNOMED Code(s): 491255356 ICD Code: A41.51 - SEPSIS DUE TO ESCHERICHIA COLI [E. COLI] Status: Acute Qualifiers: Sepsis acute organ dysfunction status: with acute organ dysfunction Severe sepsis acute organ dysfunction type: encephalopathy Severe sepsis shock status: without septic shock Qualified Code(s): A41.51 - Sepsis due to Escherichia coli [E. coli]; R65.20 - Severe sepsis without septic shock; G93.41 - Metabolic encephalopathy - Patient Summary/Data Hospital Course: Aminah presented to the emergency room with weakness, confusion and dysuria. In the emergency room she was noted to be febrile, tachycardic and borderline hypotensive. Laboratory work-up suggested a urinary tract infection with sep sis. Lactic acid was mildly elevated. She had some right flank pain raising concern for right-sided pyelonephritis. She received IV fluid boluses as well as ceftriaxone after cultures were obtained. She was admitted to the hospital for further management. Overnight following admission there were no acute issues of the next day she was doing better. Urine culture and 2 blood cultures were growing gram-negative rods. Her white count had come down from 28,000- 21,000. We continued the current plan of care with the exception of transitioning to a saline lock. By the morning of discharge she was feeling much better. Her white count was down to 14,000. Her urine culture was growing E. coli which was resistant to fluoroquinolones as well as second-generation cephalosporins and penicillins. She was transitioned to cefdinir at the time of discharge. She was feeling well and her blood pressure is had been normal since the morning after admission. Her blood cultures are still pending but I suspect that they are going to grow out the same E. coli. With concern for the pyelonephritis I am going to treat her for a total of 10days. She will have 8 days of oral antibiotics after hospital discharge. She will be following up early next week. - Patient Instructions Diet: Regular Diet as Tolerated Activity: As Tolerated Showering/Bathing: May Shower Notify Provider of: Fever, Increased Pain Other/Special Instructions: 1. You were in the hospital for management of right- sided pyelonephritis with sepsis. Your condition is improving with antibiotic therapy and IV fluids provided in the hospital. Your urine culture did grow out E. coli which is a common cause for urinary tract infections. I recommend ongoing antibiotic therapy with cefdinir (Omnicef). Please take 300 mg twice daily with food for 8 more days. Your first dose outside of the hospital will be due tonight around 9 PM. 2. Continue your other home medications as previously prescribed. 3. Follow up with your primary care in 1 week or sooner if symptoms worsen - Discharge Plan *PRESCRIPTION DRUG MONITORING PROGRAM REVIEWED*: Not Applicable *COPY OF PRESCRIPTION DRUG MONITORING REPORT IN PATIENT MARIO: Not Applicable Prescriptions/Med Rec: Cefdinir 300 mg PO BID #16 capsule Home Medications: Home Meds Gabapentin [Neurontin] 600 mg PO TID 10/09/14 [History] Nortriptyline 10 mg PO BEDTIME 10/09/14 [History] Alendronate [Fosamax] 70 mg PO Q7D@0600 10/06/16 [History] Buprenorphine/Naloxone [Buprenorphine-Naloxone 8 MG-2 MG] 1 tab SL BID 09/09/20 [History] Calcium Carbonate/Vitamin D3 [Calcium 600-Vit D3 800 Tab] 1 tab PO DAILY 09/09/20 [History] DULoxetine HCl [Duloxetine HCl] 60 mg PO BID 09/09/20 [History] Mecobalamin [B12 Active] 1 tab PO DAILY 09/09/20 [History] Multivitamin with Minerals [Multiple Vitamin] 1 tab PO DAILY 09/09/20 [History] Vitamin B Complex Vit C No.3 [B Complex with Vitamin C] 1 each PO BID 09/09/20 [History] busPIRone [Buspar] 10 mg PO BID 09/09/20 [History] PARoxetine [Paxil] 10 mg PO DAILY 09/10/20 [History] Cefdinir 300 mg PO BID #16 capsule 09/11/20 [Rx] Oxygen Therapy Mode: Room Air Patient Handouts: Pyelonephritis, Adult, Cefdinir capsules Referrals: Chante Michael DO [Primary Care Provider] - 09/17/20 1:40 pm (1 week -follow-up hospital stay for pyelonephritis) - Discharge Summary/Plan Comment DC Time >30 min.: No - Patient Data Vitals - Most Recent: Last Vital Signs Temp 36.0 C L 09/11/20 09:00 Pulse 91 09/11/20 09:00 Resp 18 09/11/20 09:00 BP 126/83 09/11/20 09:00 Pulse Ox 94 L 09/11/20 05:00 Weight - Most Recent: 88.904 kg I&O - Last 24 hours: Intake & Output 09/10/20 09/11/20 09/11/20 22:59 06:59 14:59 Intake Total 1500 300 Output Total 1600 1500 Balance -100 -1200 Lab Results - Last 24 hrs: Laboratory Results - last 24 hr 09/11/20 09/11/20 Range/Units 04:20 04:20 WBC 14.4 H (4.5-11.0) K/uL RBC 3.29 L (3.30-5.50) M/uL Hgb 10.1 L (12.0-15.0) g/dL Hct 32.6 L (36.0-48.0) % MCV 99 H (80-98) fL MCH 31 (27-31) pg MCHC 31 L (32-36) % Plt Count 195 (150-400) K/uL Sodium 136 L (140-148) mmol/L Potassium 3.9 (3.6-5.2) mmol/L Chloride 102 (100-108) mmol/L Carbon Dioxide 26 (21-32) mmol/L Anion Gap 11.9 (5.0-14.0) mmol/L BUN 12 (7-18) mg/dL Creatinine 1.1 H (0.6-1.0) mg/dL Est Cr Clr Drug Dosing 39.98 mL/min Estimated GFR (MDRD) 50 L (>60) Glucose 107 H (74-106) mg/dL Calcium 7.9 L (8.5-10.1) mg/dL C-Reactive Protein 22.46 H (0.0-0.3) mg/dL SAMUEL Results - Last 24 hrs: Microbiology 09/09/20 16:47 Aerobic Blood Culture - Preliminary Blood - Arm, Right Anaerobic Blood Culture - Preliminary NO GROWTH AFTER 1 DAY 09/09/20 16:51 Aerobic Blood Culture - Preliminary Blood - Arm, Left Gram Negative Rods Anaerobic Blood Culture - Preliminary Gram Negative Rods 09/09/20 16:59 Urine Culture - Final Urine, Clean Catch Escherichia Coli Med Orders - Current: Current Medications Acetaminophen (Tylenol) 650 mg PO Q4H PRN PRN Reason: Fever Last Admin: 09/11/20 05:41 Dose: 650 mg Documented by: Albuterol (Proventil Neb Soln) 2.5 mg NEB Q4H PRN PRN Reason: Shortness Of Breath/wheezing Bisacodyl (Dulcolax) 5 mg PO DAILY PRN PRN Reason: Constipation Buprenorphine/Naloxone (Buprenorphine-Naloxone 8 Mg-2 Mg) 1 tab SL BIDAC [facility] Last Admin: 09/11/20 08:05 Dose: 1 tab Documented by: Buspirone HCl (Buspar) 10 mg PO BID [facility] Last Admin: 09/11/20 08:05 Dose: 10 mg Documented by: Docusate Sodium (Colace) 100 mg PO BID PRN PRN Reason: Constipation Duloxetine HCl (Cymbalta) 60 mg PO BID [facility] Last Admin: 09/11/20 08:07 Dose: 60 mg Documented by: Enoxaparin Sodium (Lovenox) 40 mg SUBCUT DAILY [facility] Last Admin: 09/11/20 08:08 Dose: 40 mg Documented by: Gabapentin (Neurontin) 600 mg PO TID [facility] Last Admin: 09/11/20 08:07 Dose: 600 mg Documented by: Ceftriaxone Sodium 1 gm/ (Sodium Chloride) 50 mls @ 100 mls/hr IV Q24H [facility] Last Admin: 09/10/20 17:06 Dose: 100 mls/hr Documented by: Nortriptyline HCl (Nortriptyline) 10 mg PO BEDTIME [facility] Last Admin: 09/10/20 20:27 Dose: 10 mg Documented by: Ondansetron HCl (Zofran Odt) 4 mg PO Q6H PRN PRN Reason: Nausea able to take PO Pantoprazole Sodium (Protonix) 40 mg PO ACBREAKFAST [facility] Last Admin: 09/11/20 08:06 Dose: 40 mg Documented by: Paroxetine HCl (Paxil) 10 mg PO DAILY [facility] Last Admin: 09/11/20 08:06 Dose: 10 mg Documented by: Discontinued Medications Acetaminophen (Tylenol Extra Strength) 1,000 mg PO ONETIME ONE Stop: 09/09/20 16:07 Last Admin: 09/09/20 16:14 Dose: 1,000 mg Documented by: Albuterol/Ipratropium (Duoneb 3.0-0.5 Mg/3 Ml) 3 ml NEB QID PRN PRN Reason: Shortness Of Breath/wheezing Buprenorphine/Naloxone (Buprenorphine-Naloxone 8 Mg-2 Mg) 1 tab SL BID [facility] Last Admin: 09/10/20 19:44 Dose: Not Given Documented by: Potassium Chloride/Sodium Chloride (Normal Saline With 20 Meq Kcl) 1,000 mls @ 1,000 mls/hr IV ASDIRECTED [facility] Last Admin: 09/09/20 16:58 Dose: 1,000 mls/hr Documented by: Ceftriaxone Sodium 1 gm/ (Sodium Chloride) 50 mls @ 100 mls/hr IV ONETIME ONE Stop: 09/09/20 17:20 Last Admin: 09/09/20 16:58 Dose: 100 mls/hr Documented by: Sodium Chloride (Normal Saline) 1,000 mls @ 999 mls/hr IV ASDIRECTED [facility] Last Admin: 09/09/20 18:46 Dose: 999 mls/hr Documented by: Sodium Chloride (Normal Saline) 1,000 mls @ 125 mls/hr IV ASDIRECTED [facility] Last Admin: 09/10/20 04:37 Dose: 125 mls/hr Documented by: Sodium Chloride (Saline Flush) 10 ml FLUSH ASDIRECTED PRN PRN Reason: Keep Vein Open Last Admin: 09/09/20 16:51 Dose: 10 ml Documented by:
== END 2020-09-11 11:34 | disposition home or self-care (01) | DRG 871 ==
LOC: JP.ED 15:24 → JP.ICU 18:43
PROVIDERS: ADMIT Internal Medicine; ATTEND Nurse Practitioner
DX: A41.51 Sepsis due to Escherichia coli [E. coli] (principal); G93.41 Metabolic encephalopathy; N12 Tubulo-interstitial nephritis, not specified as acute or chronic; R65.20 Severe sepsis without septic shock; I95.9 Hypotension, unspecified; H54.7 Unspecified visual loss; I10 Essential (primary) hypertension; G89.29 Other chronic pain; M54.9 Dorsalgia, unspecified; M19.90 Unspecified osteoarthritis, unspecified site; M85.80 Other specified disorders of bone density and structure, unspecified site; Z20.828 Contact with and (suspected) exposure to other viral communicable diseases; F11.21 Opioid dependence, in remission; Z79.899 Other long term (current) drug therapy; Z87.440 Personal history of urinary (tract) infections; Z88.2 Allergy status to sulfonamides; Z98.84 Bariatric surgery status; Z90.49 Acquired absence of other specified parts of digestive tract
CPT/HCPCS: 36415; 80048; 81001; 82150; 83605; 83690; 85025; 85027; 86140; 87040; 87077; 87086; 87088; 87186; 96365; 99222-AI; 99232; 99238; 99284; 99285-25; A9270-GY; J0574-GY; J0696; J1650; J3480; J7030; J7050; U0002

== ENCOUNTER 2020-09-21 08:39 | Day surgery (SDC) | payer MEDICARE, OTHER ==
[2020-09-21] MEDS ORDERED: Propofol 200 MG/20 ML SDV ONE (08:49)
[2020-09-21] MEDS ORDERED: fentaNYL 100 MCG/2 ML SDV ONE (08:49)
[2020-09-21] MEDS ORDERED: Midazolam 1 MG/ML 2 ML SDV ONE (08:49)
[2020-09-21] MEDS ORDERED: Sodium Chloride 0.9% 1,000 ML IV SCH (09:30)
[2020-09-21 11:07] VITALS: BP 94/46; PULSE 90
--- NOTE | 2020-09-21 13:03 | OR ---
DATE OF PROCEDURE: 09/21/2020 SURGEON: Luis Landin MD PROCEDURE: Colonoscopy. FINDINGS: Poor colon prep. COMPLICATIONS: None. CRYSTAL MACHINING COORDINATOR: None. ANESTHESIA: MAC. PREOPERATIVE DIAGNOSIS: Screening colonoscopy. POSTOPERATIVE DIAGNOSIS: Screening colonoscopy. RISKS: Risks, benefits, alternatives, and limitations including, but not limited to, infection, bleeding, perforation along with false positives and false negatives were explained to the patient who wished to proceed. PROCEDURE IN DETAIL: The patient was placed in left lateral decubitus position. Digital rectal exam was performed without abnormality. The scope was introduced and advanced atraumatically to the ileocecal valve. A photo was taken. The scope was brought back to the colon and the prep was poor with approximately 60% to 70% luminal surface could be seen. No masses. No polyps. No old or new blood. No abnormalities on retroflexion. Greater than 8 minutes was spent removing the scope. Suction irrigation techniques were attempted to remove as much stool as possible; however, solid and liquid stool precluded optimization of this objective. The patient tolerated the procedure well. Luis Landin MD /[id number]
== END 2020-09-21 11:10 | disposition home or self-care (01) ==
LOC: JP.SDS 08:39
PROVIDERS: ATTEND Surgery
DX: Z12.11 Encounter for screening for malignant neoplasm of colon (principal); G47.33 Obstructive sleep apnea (adult) (pediatric); E66.9 Obesity, unspecified; K21.9 Gastro-esophageal reflux disease without esophagitis; Z88.2 Allergy status to sulfonamides; Z68.32 Body mass index [BMI] 32.0-32.9, adult
CPT/HCPCS: 45378; J2250; J2704; J3010; J7030

== ENCOUNTER 2022-09-02 15:13 | Emergency (ER) | payer MEDICARE, BC ==
[2022-09-02 15:29] VITALS: BP 140/92
[2022-09-02] MEDS ORDERED: Ketorolac 30 MG/ML SDV IM ONE (16:09)
[2022-09-02] MEDS ORDERED: Ondansetron 4 MG Tab.DIS PO ONE (16:09)
[2022-09-02 16:34] VITALS: PULSE 120
[2022-09-02] MEDS ORDERED: cefTRIAXone 2 GM in Sodium Chloride 0.9% 50 ML IV ONE (18:07)
== END 2022-09-02 19:49 ==
LOC: JP.ED 15:13
DX: N13.2 Hydronephrosis with renal and ureteral calculous obstruction (principal); N39.0 Urinary tract infection, site not specified; R31.9 Hematuria, unspecified; I10 Essential (primary) hypertension; Z88.2 Allergy status to sulfonamides; Z20.822 Contact with and (suspected) exposure to COVID-19
CPT/HCPCS: 36415; 74176; 80048; 81001; 83605; 85025; 87086; 87088; 87186; 96365; 96372; 99285; J0696; J1885; Q0162; U0002